=== PATIENT | male | born 1995 | race Hispanic/Latino ===

== ENCOUNTER 2017-02-19 16:06 | Emergency (ER) | payer BC ==
[~2017-02-19 16:06] MED LIST: ISOVUE-370 76%-LOCM 1 ML ONE; Iopamidol 370 76% 50 ML VIAL FS ONE
[2017-02-19 16:36] LABS: #Basophils 0.1 thou/uL (0.0-0.2); #Eosinphils 0.2 thou/uL (0.0-0.7); #Monocytes 0.8 thou/uL (0.11-0.59); #Neutrophils 3.5 thou/uL (1.40-6.50); %Basophils 0.8 % (0.0-1.0); %Eosinophils 3.6 % (0.0-10.0); %Lymphocytes 29.8 % (21.0-51.0); %Monocytes 12.4 % (0.0-10.0); Hematocrit 49.1 % (42.0-52.0); Red Blood Cell (RBC) Count 5.39 mill/uL (4.70-6.10); White Blood Cell (WBC) Count 6.5 thou/uL (4.8-10.8)
[2017-02-19] MEDS ORDERED: Ondansetron HCl/PF 4 MG/2 ML Vial ONE (16:49)
[2017-02-19] MEDS ORDERED: Morphine 10 MG/ML VIAL ONE (16:49)
[2017-02-19 16:57] LABS: ALT (SGPT) 47 U/L (8-55); AST (SGOT) 24 U/L (5-34); Alkaline Phosphatase 61 U/L (40-150); Anion Gap 15 mmol/L (10-20); BUN (Urea Nitrogen) 14 mg/dL (8.9-20.6); Bilirubin, Total 0.7 mg/dL (0.2-1.2); Calc. Creatinine Clearance 0 mL/min (70-130); Calcium 8.8 mg/dL (7.8-10.44); Carbon Dioxide 22 mmol/L (22-29); Chloride 104 mmol/L (98-107); Estimated GFR-MDRD Greater than 90; Protein, Total 7.1 g/dL (6.0-8.3)
--- NOTE | 2017-02-19 17:46 | ULT ---
RIGHT UPPER QUADRANT ULTRASOUND: 02/19/17 INDICATION: Right upper quadrant pain. COMPARISON: CT of the abdomen and pelvis dated 12/19/16. FINDINGS: There is hepatomegaly with the liver measuring up to 18.58 cm in its greatest longitudinal dimension . There is prominent fatty liver which is stable. Gallbladder is normal. No sonographic Hardy sign is reported. Common bile duct measures 4.6 mm which is normal. The visualized aspects of the pancre atic head appear within normal limits. No free fluid is evident. Appropriate flow is seen within the portal vein. The right kidney measures 12.1 cm in length and has no evidence of hydronephrosis. IMPRESSION: 1. Hepatomegaly with fatty infiltration that appears similar to a comparison CT of 12/19/16. 2. No additional sonographic abnormality seen within the right upper quadrant of the abdomen. POS: [facility]
--- NOTE | 2017-02-19 20:09 | CT ---
CT OF THE ABDOMEN AND PELVIS WITH IV AND ENTERIC CONTRAST 02/19/17 INDICATION: Right sided abdominal pain. COMPARISON: Prior noncontrast CT of the abdomen and pelvis dated 12/19/16. FINDINGS: The lung bases are clear. There is prominent fatty infiltration of the liver which is stable. The pancreas, spleen, adrenal glands, and kidneys are normal appearing. No hydronephrosis is evident . No free fluid is evident. There is normal appendix in the right lower quadrant. The bladder, rectum, and perirectal soft tissu es are unremarkable. Unopacified large bowel appears within normal limits. Stable bone island is seen within the left pubic body. No definite acute osseous abnormality is evident. IMPRESSION: 1. Stable fatty liver. 2. Normal appendix. 3. No hydronephrosis. POS: [facility]
== END 2017-02-19 20:35 | disposition home or self-care (01) ==
LOC: ERS 16:06
DX: R10.11 Right upper quadrant pain (principal)
CPT/HCPCS: 36415; 74177; 76705; 80053; 83690; 85025; 96361; 96374; 96375; J2270; J2405

== ENCOUNTER 2017-12-21 07:33 | Emergency (ER) | payer BC | END 2017-12-21 07:57 | disposition home or self-care (01) | LOC: ERS 07:33 | DX: F10.129 Alcohol abuse with intoxication, unspecified (principal) | CPT/HCPCS: 99284 ==